=== PATIENT | male | born 1965 | race Caucasian/White ===

== ENCOUNTER → 2017-08-25 | Outpatient (CLI) | payer BC ==
[~2017-08-25] VITALS: Ht 185.4 cm; Wt 102.5 kg
[~2017-08-25] MED LIST: CRESTOR5 MG PO
== END | disposition home or self-care (01) ==
LOC: AMB 08-23 13:30
PROC: 0DJD8ZZ Inspection of Lower Intestinal Tract, Via Natural or Artificial Opening Endoscopic (ICD-10-PCS; principal; 2017-08-25)
DX: C20 Malignant neoplasm of rectum (principal); J30.9 Allergic rhinitis, unspecified; R73.01 Impaired fasting glucose; E78.00 Pure hypercholesterolemia, unspecified; Z83.3 Family history of diabetes mellitus
CPT/HCPCS: 93005; C1726; J2250